=== PATIENT | female | born 1945 | race Caucasian/White ===

== ENCOUNTER 2020-07-15 17:01 | Inpatient (IN) | payer OTHER, MEDICARE ==
[2020-07-15 17:14] VITALS: BMI 20.9
[2020-07-15] MEDS ORDERED: ACETAMINOPHEN 1000 MG/100 ML VIAL (NON FORMULARY) IVPB ONE (18:33)
[2020-07-15] MEDS ORDERED: ACETAMINOPHEN INJECTION 100 ML IVPB ONE (19:20)
[2020-07-15 19:30] LABS: BASO % 1.1 % (0-2.0); EOS % 2.4 % (0-4.5); HEMATOCRIT 41.5 % (32.4-45.2); HEMOGLOBIN 13.8 GM/dL (10.7-15.3); LYMPH % 21.9 % (8-40); MCH 30.7 pg (25.7-33.7); MCHC 33.2 g/dl (32.0-36.0); MEAN CELL VOLUME 92.7 fl (80-96); MEAN PLT VOLUME 8.3 fl (7.5-11.1); MONO % 8.2 % (3.8-10.2); NEUT % 66.4 % (42.8-82.8); PLATELET COUNT 209 K/MM3 (134-434); RBC 4.48 M/mm3 (3.60-5.2); WHITE BLOOD COUNT 5.9 K/mm3 (4.0-10.0)
[2020-07-15 19:50] LABS: POTASSIUM 5.4 mmol/L (3.5-5.1)
[2020-07-15 19:51] LABS: INR 1.03 (0.83-1.09); PROTHROMBIN TIME (PATIENT) 12.4 SEC (9.7-13.0)
[2020-07-15 19:52] LABS: ALBUMIN 4.1 g/dl (3.4-5.0); CALCIUM 9.9 mg/dL (8.5-10.1)
[2020-07-15 19:53] LABS: BLOOD UREA NITROGEN 19.2 mg/dL (7-18)
[2020-07-15 19:56] LABS: CREATININE 0.9 mg/dL (0.55-1.3)
[2020-07-15 19:57] LABS: BILIRUBIN,TOTAL 0.5 mg/dL (0.2-1); TOT PROT 7.3 g/dl (6.4-8.2)
[2020-07-15] MEDS ORDERED: SODIUM CHLORIDE 500 ML IV STA (20:21)
[2020-07-15] MEDS ORDERED: DEXTROSE 5%-0.45% SALINE 1,000 ML IV SCH (22:00)
[2020-07-15] MEDS ORDERED: clonazePAM 0.5 MG TABLET PO ONE (23:49)
[2020-07-15] MEDS ORDERED: clonazePAM 0.5 MG TABLET ONE (23:50)
[2020-07-15] MEDS ORDERED: MORPHINE SULFATE 2 MG/ML VIAL IVPUSH PRN (23:56)
[2020-07-16] MEDS ORDERED: ACETAMINOPHEN INJECTION 100 ML IVPB ONE (00:40)
[2020-07-16] MEDS: ACETAMINOPHEN 1000 MG/100 ML VIAL (NON FORMULARY) IVPB PRN ×2 (00:45→13:59)
[2020-07-16] MEDS ORDERED: traMADol HCL 50 MG TABLET PO ONE (05:00)
[2020-07-16 09:13] LABS: BASO % 0.7 % (0-2.0); HEMATOCRIT 35.1 % (32.4-45.2); HEMOGLOBIN 11.8 GM/dL (10.7-15.3); LYMPH % 26.7 % (8-40); MCH 31.2 pg (25.7-33.7); MCHC 33.6 g/dl (32.0-36.0); MEAN CELL VOLUME 92.9 fl (80-96); MEAN PLT VOLUME 8.6 fl (7.5-11.1); MONO % 10.8 % (3.8-10.2); NEUT % 59.8 % (42.8-82.8); PLATELET COUNT 181 K/MM3 (134-434); RBC 3.78 M/mm3 (3.60-5.2); RDW 13.2 % (11.6-15.6); WHITE BLOOD COUNT 4.9 K/mm3 (4.0-10.0)
[2020-07-16 10:08] LABS: CALCIUM 8.6 mg/dL (8.5-10.1)
[2020-07-16 10:09] LABS: ALBUMIN 3.3 g/dl (3.4-5.0); BLOOD UREA NITROGEN 14.3 mg/dL (7-18)
[2020-07-16 10:12] LABS: CREATININE 0.8 mg/dL (0.55-1.3)
[2020-07-16 10:13] LABS: BILIRUBIN,TOTAL 0.7 mg/dL (0.2-1)
[2020-07-16] MEDS ORDERED: PT OWN MED DRAWER 7, Y5N ONE ×2 (10:30→19:34)
[2020-07-16] MEDS: traMADol HCL 50 MG TABLET PO PRN ×3 (10:33→19:38)
[2020-07-16] MEDS: buPROPion HCL 100 MG TABLET PO SCH ×2 (10:35→19:41)
[2020-07-16] MEDS: DULoxetine HCL 20 MG CAPSULE.DR PO SCH (10:35)
[2020-07-16] MEDS ORDERED: ACETAMINOPHEN WITH CODEINE 300MG/30MG TABLET PO PRN (15:42)
[2020-07-16] MEDS ORDERED: clonazePAM 0.5 MG TABLET PO PRN (15:44)
[2020-07-16] MEDS: ACETAMINOPHEN 325 MG TABLET (FP) PO PRN ×2 (16:37→21:34)
[2020-07-16] MEDS: oxyCODONE HCL 5 MG TABLET PO PRN (16:38)
[2020-07-17] MEDS: traMADol HCL 50 MG TABLET PO PRN (02:02)
[2020-07-17] MEDS: oxyCODONE HCL 5 MG TABLET PO PRN (03:26)
[2020-07-17] MEDS ORDERED: PT OWN MED DRAWER 7, Y5N ONE ×4 (04:00→09:35)
[2020-07-17] MEDS: SUMAtriptan SUCCINATE 50 MG TABLET PO PRN ×2 (04:40→08:32)
[2020-07-17] MEDS: ACETAMINOPHEN 325 MG TABLET (FP) PO PRN (08:46)
[2020-07-17] MEDS: buPROPion HCL 100 MG TABLET PO SCH (09:46)
[2020-07-17] MEDS: DULoxetine HCL 20 MG CAPSULE.DR PO SCH (09:47)
[2020-07-17 12:30] VITALS: BP 136/76; PULSE 88; TEMP 98.7
== END 2020-07-17 17:14 | disposition home health service (06) | DRG 563 ==
LOC: JERFT 17:01 → JER 17:01 → JERBED 19:05 → J6S 07-16 01:06
PROVIDERS: ADMIT Internal Medicine; ATTEND Internal Medicine
PROC: 2W3RXYZ Immobilization of Left Lower Leg using Other Device (ICD-10-PCS; principal; 2020-07-16)
DX: S82.142A Displaced bicondylar fracture of left tibia, initial encounter for closed fracture (principal); M17.12 Unilateral primary osteoarthritis, left knee; F32.9 Major depressive disorder, single episode, unspecified; M19.90 Unspecified osteoarthritis, unspecified site; W17.89XA Other fall from one level to another, initial encounter; Y92.098 Other place in other non-institutional residence as the place of occurrence of the external cause; M41.9 Scoliosis, unspecified; M51.35 Other intervertebral disc degeneration, thoracolumbar region; M48.05 Spinal stenosis, thoracolumbar region
CPT/HCPCS: 36415; 73562-TC-LT-FY; 73700-TC-RT; 80053; 85025; 85610; 86850; 86900; 86901; 93005; 93010; 97116-GP; 97162-GP; 99285-25; C9803; J0131; U0003

== ENCOUNTER 2021-08-17 02:21 | Emergency (ER) | payer OTHER, MEDICARE ==
[2021-08-17 02:46] VITALS: PULSE 95; TEMP 98.2; BMI 21.1
[2021-08-17] MEDS ORDERED: MINERAL OIL ENEMA 133 ML ENEMA PR ONE (04:06)
[2021-08-17] MEDS ORDERED: MAGNESIUM CITRATE 300 ML BOTTLE PO ONE (05:16)
[2021-08-17] MEDS ORDERED: MAGNESIUM CITRATE 300 ML BOTTLE ONE (06:23)
[2021-08-17 10:08] VITALS: BP 136/76
== END 2021-08-17 11:30 | disposition home or self-care (01) ==
LOC: JER 02:21
DX: K59.00 Constipation, unspecified (principal)
CPT/HCPCS: 99283-25

== ENCOUNTER 2022-09-14 19:09 | Emergency (ER) | payer OTHER, MEDICARE ==
[2022-09-14 19:15] VITALS: RESP 18; BMI 20.8
[2022-09-14] MEDS ORDERED: ACETAMINOPHEN 1000 MG/100 ML BAG IVPB ONE (20:39)
[2022-09-14] MEDS ORDERED: ACETAMINOPHEN INJECTION 100 ML IVPB ONE (20:57)
[2022-09-14 21:14] LABS: BASO % 0.3 % (0-2.0); EOS % 0.8 % (0-4.5); HEMATOCRIT 37.6 % (32.4-45.2); HEMOGLOBIN 12.6 GM/dL (10.7-15.3); LYMPH % 8.5 % (8-40); MCH 30.3 pg (25.7-33.7); MCHC 33.4 g/dl (32.0-36.0); MEAN CELL VOLUME 90.6 fl (80-96); MONO % 9.6 % (3.8-10.2); NEUT % 80.8 % (42.8-82.8); PLATELET COUNT 217 10^3/uL (134-434); RBC 4.15 M/mm3 (3.60-5.2); RDW 13.2 % (11.6-15.6); WHITE BLOOD COUNT 11.5 K/mm3 (4.0-10.0)
[2022-09-14 21:29] LABS: INR 1.28 (0.83-1.09); PROTHROMBIN TIME (PATIENT) 14.8 SEC (9.7-13.0)
[2022-09-14 21:31] LABS: URINE APPEARANCE CLEAR; URINE BILIRUBIN NEGATIVE (NEGATIVE); URINE COLOR YELLOW; URINE GLUCOSE (UA) NEGATIVE (NEGATIVE); URINE KETONE TRACE (NEGATIVE); URINE LEUK ESTERASE NEGATIVE (NEGATIVE); URINE NITRITE NEGATIVE (NEGATIVE); URINE PROTEIN TRACE (NEGATIVE)
[2022-09-14 21:31] LABS: ACTIVATED PTT 39.5 SECONDS (25.2-36.5)
[2022-09-14 21:34] LABS: ALBUMIN 3.8 g/dl (3.4-5.0); BLOOD UREA NITROGEN 22.6 mg/dL (7-18); CALCIUM 9.5 mg/dL (8.5-10.1); MAGNESIUM 2.2 mg/dL (1.8-2.4)
[2022-09-14 21:37] LABS: CREATININE 1.1 mg/dL (0.55-1.3)
[2022-09-14 21:39] LABS: BILIRUBIN,TOTAL 0.6 mg/dL (0.2-1); TOT PROT 6.6 g/dl (6.4-8.2)
[2022-09-14 23:35] VITALS: BP 110/60; PULSE 72; TEMP 98.7
== END 2022-09-15 | disposition home or self-care (01) ==
LOC: JER 19:09
PROC: 3E033NZ Introduction of Analgesics, Hypnotics, Sedatives into Peripheral Vein, Percutaneous Approach (ICD-10-PCS; principal; 2022-09-14)
DX: R10.31 Right lower quadrant pain (principal); R42 Dizziness and giddiness; Z20.822 Contact with and (suspected) exposure to COVID-19
CPT/HCPCS: 0241U-QW; 36415; 71045-TC-FY; 74177-TC; 80053; 81003; 83690; 83735; 84484; 85025; 85610; 85730; 86850; 86900; 86901; 87086; 93005; 93010; 99285-25; Q9967

== ENCOUNTER 2023-04-30 20:45 | Inpatient (IN) | payer OTHER, MEDICARE ==
[2023-04-30 20:49] VITALS: BMI 20.9
[2023-04-30 22:09] LABS: BASO % 0.9 % (0-2.0); EOS % 4.8 % (0-4.5); HEMATOCRIT 37.7 % (32.4-45.2); HEMOGLOBIN 12.9 GM/dL (10.7-15.3); LYMPH % 35.5 % (8-40); MCH 31.3 pg (25.7-33.7); MCHC 34.1 g/dl (32.0-36.0); MEAN CELL VOLUME 91.9 fl (80-96); MEAN PLT VOLUME 7.2 fl (7.5-11.1); NEUT % 47.8 % (42.8-82.8); PLATELET COUNT 229 10^3/uL (134-434); RDW 12.6 % (11.6-15.6); WHITE BLOOD COUNT 3.7 K/mm3 (4.0-10.0)
[2023-04-30 22:17] LABS: INR 1.26 (0.83-1.09); PROTHROMBIN TIME (PATIENT) 14.6 SEC (9.7-13.0)
[2023-04-30 22:19] LABS: ACTIVATED PTT 46.5 SECONDS (25.2-36.5)
[2023-04-30 22:33] LABS: POTASSIUM 4.6 mmol/L (3.5-5.1)
[2023-04-30 22:36] LABS: CALCIUM 9.2 mg/dL (8.5-10.1)
[2023-04-30 22:37] LABS: ALBUMIN 3.7 g/dl (3.4-5.0); BLOOD UREA NITROGEN 23.7 mg/dL (7-18)
[2023-04-30 22:40] LABS: CREATININE 1.3 mg/dL (0.55-1.3)
[2023-04-30 22:42] LABS: BILIRUBIN,TOTAL 0.3 mg/dL (0.2-1)
[2023-04-30] MEDS ORDERED: ASPIRIN 81 MG CHEWABLE TABLETS PO ONE (22:55)
[2023-04-30] MEDS ORDERED: ASPIRIN 81 MG CHEWABLE TABLETS ONE (23:04)
[2023-05-01] MEDS ORDERED: ATORVASTATIN CA 40 MG TABLET (FP) PO ONE ×2 (02:45→21:24)
[2023-05-01] MEDS ORDERED: ATORVASTATIN CA 40 MG TABLET (FP) ONE (03:09)
[2023-05-01 03:41] LABS: N-TERMINAL BNP 595.2 pg/ml (5-450)
[2023-05-01 06:33] LABS: BASO % 0.8 % (0-2.0); EOS % 2.4 % (0-4.5); HEMOGLOBIN 12.3 GM/dL (10.7-15.3); LYMPH % 26.2 % (8-40); MCH 31.9 pg (25.7-33.7); MCHC 35.1 g/dl (32.0-36.0); MEAN CELL VOLUME 90.9 fl (80-96); MEAN PLT VOLUME 7.3 fl (7.5-11.1); MONO % 10.3 % (3.8-10.2); NEUT % 60.3 % (42.8-82.8); PLATELET COUNT 234 10^3/uL (134-434); RBC 3.85 M/mm3 (3.60-5.2); RDW 12.6 % (11.6-15.6); WHITE BLOOD COUNT 6.6 K/mm3 (4.0-10.0)
[2023-05-01 06:47] LABS: POTASSIUM 4.2 mmol/L (3.5-5.1)
[2023-05-01 06:48] LABS: CALCIUM 8.9 mg/dL (8.5-10.1); MAGNESIUM 1.8 mg/dL (1.8-2.4)
[2023-05-01 06:49] LABS: BLOOD UREA NITROGEN 24.8 mg/dL (7-18)
[2023-05-01 06:52] LABS: CREATININE 1.1 mg/dL (0.55-1.3)
[2023-05-01] MEDS ORDERED: buPROPion HCL 100 MG TABLET ONE (10:36)
[2023-05-01] MEDS: ASPIRIN 81 MG CHEWABLE TABLETS PO SCH (10:45)
[2023-05-01] MEDS: DULoxetine HCL 20 MG CAPSULE.DR PO SCH (10:45)
[2023-05-01] MEDS: buPROPion HCL 100 MG TABLET PO SCH (10:45)
[2023-05-01] MEDS: RIVAROXABAN 20 MG TABLET PO SCH (17:35)
[2023-05-01] MEDS ORDERED: ACETAMINOPHEN 1000 MG/100 ML BAG IVPB PRN (18:03)
[2023-05-01] MEDS: CLOPIDOGREL BISULFATE 75 MG TABLET (FP) PO SCH (21:54)
[2023-05-02 08:32] LABS: BASO % 0.4 % (0-2.0); EOS % 3.5 % (0-4.5); HEMATOCRIT 36.9 % (32.4-45.2); HEMOGLOBIN 12.5 GM/dL (10.7-15.3); LYMPH % 28.7 % (8-40); MCH 30.9 pg (25.7-33.7); MCHC 33.8 g/dl (32.0-36.0); MEAN CELL VOLUME 91.5 fl (80-96); MEAN PLT VOLUME 7.8 fl (7.5-11.1); MONO % 13.9 % (3.8-10.2); NEUT % 53.5 % (42.8-82.8); PLATELET COUNT 217 10^3/uL (134-434); RBC 4.03 M/mm3 (3.60-5.2); RDW 12.3 % (11.6-15.6); WHITE BLOOD COUNT 5.2 K/mm3 (4.0-10.0)
[2023-05-02 08:59] LABS: POTASSIUM 4.1 mmol/L (3.5-5.1)
[2023-05-02] MEDS: CLOPIDOGREL BISULFATE 75 MG TABLET (FP) PO SCH (09:00)
[2023-05-02] MEDS: DULoxetine HCL 20 MG CAPSULE.DR PO SCH (09:01)
[2023-05-02] MEDS: ASPIRIN 81 MG CHEWABLE TABLETS PO SCH (09:01)
[2023-05-02 09:09] LABS: CALCIUM 9.1 mg/dL (8.5-10.1)
[2023-05-02 09:10] LABS: ALBUMIN 3.3 g/dl (3.4-5.0); BLOOD UREA NITROGEN 16.3 mg/dL (7-18)
[2023-05-02 09:13] LABS: BILIRUBIN,TOTAL 0.9 mg/dL (0.2-1)
[2023-05-02 09:14] LABS: TOT PROT 6.2 g/dl (6.4-8.2)
[2023-05-02] MEDS: buPROPion HCL 100 MG TABLET PO SCH (11:10)
[2023-05-02] MEDS: ACETAMINOPHEN 325 MG TABLET (FP) PO PRN (14:29)
[2023-05-02] MEDS: RIVAROXABAN 20 MG TABLET PO SCH (17:17)
[2023-05-02] MEDS ORDERED: METOPROLOL TARTRATE 5 MG/5 ML VIAL IVPUSH ONE (18:45)
[2023-05-02] MEDS ORDERED: metoPROLOL SUCCINATE 25 MG TAB.SR.24H (FP) PO ONE (19:17)
[2023-05-02] MEDS: ATORVASTATIN CA 40 MG TABLET (FP) PO SCH (21:15)
[2023-05-02] MEDS ORDERED: ATORVASTATIN CA 40 MG TABLET (FP) PO SCH (22:00)
[2023-05-03 07:41] LABS: POTASSIUM 4.5 mmol/L (3.5-5.1)
[2023-05-03 07:50] LABS: CALCIUM 8.8 mg/dL (8.5-10.1)
[2023-05-03 07:51] LABS: BLOOD UREA NITROGEN 14.8 mg/dL (7-18); MAGNESIUM 1.9 mg/dL (1.8-2.4)
[2023-05-03 07:54] LABS: BILIRUBIN,TOTAL 0.7 mg/dL (0.2-1); CREATININE 1.1 mg/dL (0.55-1.3); TOT PROT 5.9 g/dl (6.4-8.2)
[2023-05-03 07:59] LABS: BASO % 0.4 % (0-2.0); EOS % 3.9 % (0-4.5); HEMATOCRIT 37.1 % (32.4-45.2); HEMOGLOBIN 12.6 GM/dL (10.7-15.3); LYMPH % 28.8 % (8-40); MEAN CELL VOLUME 91.1 fl (80-96); MEAN PLT VOLUME 7.8 fl (7.5-11.1); MONO % 13.9 % (3.8-10.2); PLATELET COUNT 221 10^3/uL (134-434); RBC 4.07 M/mm3 (3.60-5.2); RDW 12.5 % (11.6-15.6); WHITE BLOOD COUNT 5.3 K/mm3 (4.0-10.0)
[2023-05-03] MEDS: buPROPion HCL 100 MG TABLET PO SCH (10:10)
[2023-05-03] MEDS: ASPIRIN 81 MG CHEWABLE TABLETS PO SCH (10:10)
[2023-05-03] MEDS: DULoxetine HCL 20 MG CAPSULE.DR PO SCH (10:10)
[2023-05-03] MEDS: CLOPIDOGREL BISULFATE 75 MG TABLET (FP) PO SCH (10:11)
[2023-05-03] MEDS: RIVAROXABAN 20 MG TABLET PO SCH (17:47)
[2023-05-03] MEDS: ATORVASTATIN CA 40 MG TABLET (FP) PO SCH (21:37)
[2023-05-04] MEDS: ACETAMINOPHEN 325 MG TABLET (FP) PO PRN (02:02)
[2023-05-04] MEDS: DULoxetine HCL 20 MG CAPSULE.DR PO SCH (10:11)
[2023-05-04] MEDS: ASPIRIN 81 MG CHEWABLE TABLETS PO SCH (10:11)
[2023-05-04] MEDS: buPROPion HCL 100 MG TABLET PO SCH (10:12)
[2023-05-04] MEDS: CLOPIDOGREL BISULFATE 75 MG TABLET (FP) PO SCH (14:38)
[2023-05-04] MEDS: ATORVASTATIN CA 40 MG TABLET (FP) PO SCH (21:53)
[2023-05-05] MEDS: DULoxetine HCL 20 MG CAPSULE.DR PO SCH (09:38)
[2023-05-05] MEDS: ASPIRIN 81 MG CHEWABLE TABLETS PO SCH (09:38)
[2023-05-05] MEDS: buPROPion HCL 100 MG TABLET PO SCH (09:39)
[2023-05-05] MEDS: CLOPIDOGREL BISULFATE 75 MG TABLET (FP) PO SCH (09:39)
[2023-05-05] MEDS ORDERED: LORATADINE 10 MG TABLET PO SCH (10:00)
[2023-05-05 19:24] VITALS: BP 102/67; PULSE 84; RESP 22; TEMP 98.4
== END 2023-05-05 19:40 | disposition short-term general hospital (02) | DRG 282 ==
LOC: JER 20:45 → JERBED 05-01 00:30 → J4W 05-01 15:22 → OBSVTOIN 05-03 09:18
PROVIDERS: ADMIT Internal Medicine; ATTEND Internal Medicine
DX: I21.4 Non-ST elevation (NSTEMI) myocardial infarction (principal); I10 Essential (primary) hypertension; I48.0 Paroxysmal atrial fibrillation; E78.5 Hyperlipidemia, unspecified; F32.A Depression, unspecified; M79.7 Fibromyalgia
CPT/HCPCS: 0241U-QW; 36415; 70360-TC-FY; 71046-TC-FY; 80048; 80053; 80061; 82550; 83036; 83735; 83880; 84443; 84484; 85025; 85379; 85610; 85651; 85730; 86140; 86141; 87635; 93005; 93010; 93306-TC; 99285-25; G0378